=== PATIENT | male | born 1945 | race Caucasian/White ===

== ENCOUNTER → 2023-01-26 11:13 | Outpatient (BNVA) | payer MEDICARE, OTHER, SELFPAY | PROVIDERS: Referring Provider Registered Nurse; Visit Provider Physician Assistant | DX: M51.36 Other intervertebral disc degeneration, lumbar region (principal); M54.9 Dorsalgia, unspecified; M54.50 Low back pain, unspecified | CPT/HCPCS: 72110 ==

== ENCOUNTER → 2025-01-04 12:15 | Outpatient (BNVA) | payer MEDICARE, OTHER, SELFPAY | PROVIDERS: PCP Family Medicine; Visit Provider Internal Medicine | DX: R07.9 Chest pain, unspecified (principal); R93.1 Abnormal findings on diagnostic imaging of heart and coronary circulation; I45.10 Unspecified right bundle-branch block | CPT/HCPCS: 93005 ==

== ENCOUNTER 2025-01-31 11:12 | Outpatient (CLI) | payer MEDICARE, OTHER, SELFPAY ==
--- NOTE | 2025-01-31 11:29 | ECG_ITS ---
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 Interpretive Statements Lung unchanged pre/post procedure; Intraprocedure shortess of breath; Symptoms resoled by discharge PROCEDURE: At the baseline, the blood pressure was 138/81 with a heart rate of 63 bpm. The electrocardiogram showed sinus rhythm with a sinus arrhythmia and incomplete right bundle branch block. Nonspecific T wave changes. The dobutamine was infused over a period of. 6 minutes and 37 seconds the maximum heart rate obtained was 140 (99% of the maximum predicted heart rate). The blood pressure at that time was 160/78 mmHg. The patient did not have any chest pain or any significant electrocardiogram changes with the dobutamine infusion. Occasional PVCs were noted on the monitor. The physical examination remained unchanged. No arrhythmias were seen on the monitor. During the recovery phase, the patient did not have any specific symptoms. The blood pressure at the end of the recovery phase was 140/89 with a heart rate of 70 per minute. The EKG reverted back to the baseline CONCLUSION: 1. No severe EKG changes to dobutamine infusion. 2. Dobutamine used to be regular arrhythmia-isolated PVCs 3. Normal blood pressure and heart rate response to dobutamine infusion 4. Sestamibi/Sestamibi perfusion scan pending; see separate report. Electronically Signed On 02-04-2025 22:24:11 CDT by Juan Manuel Simpson M.D. [email or web address]
--- NOTE | 2025-01-31 11:32 | USCV_ITS ---
Dobutamine Stress Echo Filemon Rios Age: 79 Gender: M : 1945 Exam Date: 01/31/2025 12:58 Ordering Phys: Gama Alexander M.D ([email or web address]) Technologist: Exam Location: [facility] [place] Indication: CP, SOB Rhythm: Sinus Patient History: CVA, bradycardia, 2nd degree AV block Cardiac Medications: simvastatin, plavix Medications in past 24 hours: simvastatin, plavix Contrast: Total Dose (mL): Stress Results Protocol: Pharmacologic Peak Dose (???g/kg/min): 20 Duration (min:sec): Atropine:(mg) Target HR: 120 Double Product: 83038 Resting HR: Resting BP: 139 / 81 Peak HR: 132 Peak BP: 169 / 96 Max Predicted HR: 141 94 % Max Predicted HR Stress Summary: The hemodynamic response to stress was normal. The patient's target heart rate was achieved. BP Response: Normal Reason for Termination: The patients target heart rate was achieved Cardiac Symptoms: None ECG Analysis Resting EKG: Please see separate report Stress EKG: Please see separate report Arrhythmia: Please see separate report. MEASUREMENTS (Male/Female) Normal Values FINDINGS Baseline echocardiogram revealed normal LV size and ejection fraction. Segmental wall motion analysis revealing no gross wall motion abnormalities. Mild left-ventricular hypertrophy. No pericardial effusion. The mitral valve appears to no significant morphologic abnormalities. The aortic valve appears to be minimally thickened . The morphology could not be delineated well. With the low and peak dobutamine infusion, there was good augmentation of all the segments. Because of the arrhythmia, segmental wall motion analysis somewhat difficult. During the recovery phase, the segmental wall motion returned to the baseline CONCLUSIONS 1. Possibly normal echocardiographic response to dobutamine infusion. 2. Dobutamine induced ventricular arrhythmias make the interpretation somewhat difficult. 3. Possibly no significant coronary ischemia, based on the above findings Dr Juan Manuel Simpson MD [facility] (Electronically Signed) Final Date: 02 February 2025 15:49 S
[2025-01-31 12:33] VITALS: BMI 27.8
[2025-01-31] MEDS: DOBUTtamine 200 MG in sodium chloride 0.9% 34 ML 13.61 MG IV (13:05)
[2025-01-31] MEDS: metoprolol tartrate 1 mg/1 mL SDV 5 mL 5 MG IVP (13:14)
[2025-01-31 13:28] VITALS: BP 140/89; PULSE 77
== END 2025-01-31 11:13 | disposition home or self-care (01) ==
LOC: CDL 11:18
PROVIDERS: PCP Family Medicine; Visit Provider Internal Medicine
DX: R07.9 Chest pain, unspecified (principal); R06.02 Shortness of breath; R93.1 Abnormal findings on diagnostic imaging of heart and coronary circulation
CPT/HCPCS: 36415; 93017; 93350; 96374; J1250; J3490; J7050

== ENCOUNTER → 2025-02-08 11:50 | Outpatient (BNVA) | payer MEDICARE, OTHER, SELFPAY | PROVIDERS: PCP Family Medicine; Visit Provider Internal Medicine | DX: I44.1 Atrioventricular block, second degree (principal); R00.1 Bradycardia, unspecified; R06.02 Shortness of breath; Z79.02 Long term (current) use of antithrombotics/antiplatelets; Z86.73 Personal history of transient ischemic attack (TIA), and cerebral infarction without residual deficits | CPT/HCPCS: 99213 ==